=== PATIENT | female | born 1940 ===

== ENCOUNTER → 2018-03-18 19:39 | Outpatient (REF) | payer MEDICARE, OTHER, SELFPAY | LOC: LAB 19:39 | PROVIDERS: Visit Provider Family Medicine | DX: N39.0 Urinary tract infection, site not specified (principal) | CPT/HCPCS: 87086 ==

== ENCOUNTER → 2018-03-23 19:13 | Outpatient (REF) | payer MEDICARE, OTHER, SELFPAY | LOC: LAB 19:13 | PROVIDERS: Visit Provider Family Medicine | DX: N89.8 Other specified noninflammatory disorders of vagina (principal) | CPT/HCPCS: 87070; 87205 ==